=== PATIENT | male | born 1985 | race Caucasian/White ===

== ENCOUNTER 2016-03-18 10:31 | Emergency (ER) | payer MEDICAID, OTHER ==
--- NOTE | 2016-03-18 12:25 | US ---
Exam: Scrotum and contents ultrasound COMPARISON: None INDICATION: Bilateral testicular swelling this weekend. History of penis fracture on 02/26/2016. FINDINGS: Ultrasound evaluation of the scrotum and its contents was obtained. Right testicle measures 5.3 x 3.2 x 3.0 cm and left testicle measures 5.1 x 2.6 x 3.2 cm. Both testicles are homogeneous in echotexture and without focal mass. Blood flow is present within both testicles and appears symmetric. There is asymmetric tubular ectasia within the epididymis on the left. Epididymis are otherwise symmetric and within normal limits. The rete testis is normal. Small bilateral hydroceles are present, slightly greater on the right. IMPRESSION: 1. Small bilateral hydroceles, right slightly greater than left. 2. No evidence of testicular torsion or mass. 3. Asymmetric tubular ectasia within the epididymis on the left. This is of uncertain etiology and significance but could reflect unilateral vas obstruction. Report was uploaded to the EMR 1222 hours 03/18/2016.
== END 2016-03-18 12:41 | disposition home or self-care (01) ==
LOC: ED 10:31
DX: S39.94XA Unspecified injury of external genitals, initial encounter (principal); N50.819 Testicular pain, unspecified; X58.XXXA Exposure to other specified factors, initial encounter; Y92.009 Unspecified place in unspecified non-institutional (private) residence as the place of occurrence of the external cause